=== PATIENT | female | born 1985 | race African-American/Black ===

== ENCOUNTER 2021-06-12 12:09 | Emergency (ER) | payer SELFPAY ==
[2021-06-12 12:12] VITALS: BP 121/75; PULSE 101; RESP 18; TEMP 36; O2SAT 100
--- NOTE | 2021-06-12 12:37 | PC.NURSE ---
Pt walking out of dept states im going to get my boyfriend he doesn't know how to get in here, ill be right back
--- NOTE | 2021-06-12 13:08 | PC.NURSE ---
Pt walked out to parking lot and has not returned
== END 2021-06-12 13:08 | disposition left against medical advice (07) ==
LOC: ANHED 13:13
DX: O99.891 Other specified diseases and conditions complicating pregnancy (principal); N89.8 Other specified noninflammatory disorders of vagina; Z3A.16 16 weeks gestation of pregnancy
CPT/HCPCS: 99199